=== PATIENT | male | born 1990 | race African-American/Black ===

== ENCOUNTER 2017-09-01 22:08 | Emergency (ER) | payer SELFPAY ==
[~2017-09-01] VITALS: Ht 180.3 cm; Wt 57.0 kg
[2017-09-01 22:19] VITALS: Ht 180.3 cm; Wt 57.0 kg
[2017-09-02] MEDS ORDERED: IBUPROFEN 600 MG TAB PO ONE (01:30)
[2017-09-02] MEDS ORDERED: traMADol 50 MG TAB PO ONE (01:30)
--- NOTE | 2017-09-02 02:04 | ERD ---
ER Documentation Chief Complaint Chief Complaint Pt reports R foot pain after a fall HPI 26-year-old male presents here in emergency department for complaints of right foot pain after falling in the stairs today, patient also is complaining of right ankle pain. Patient is complaining of right foot and ankle pain, throbbing pain, 6/10 scale, as was upon movement. Patient did not take any medications to help with symptoms. Patient denies any deformity. Patient denies any numbness or tingling. ROS All systems reviewed and are negative except as per history of present illness. Medications Home Meds Reported Medications [none] Unknown Strength No Conflict Check 09/02/17 Allergies Allergies: Coded Allergies: No Known Allergy (Unverified , 09/01/17) PMhx/Soc Medical and Surgical Hx: pt denies Medical Hx, pt denies Surgical Hx FmHx Family History: No coronary disease, No diabetes, No other Physical Exam Vitals Vital Signs Date Time Temp Pulse Resp B/P Pulse Ox O2 Delivery O2 Flow Rate FiO2 09/01/17 22:19 98.3 97 16 113/62 97 Physical Exam GENERAL: The patient is well developed and appropriate for usual state of health, in no apparent distress. CHEST: Clear to auscultation bilaterally. There are no rales, wheezes or rhonchi. HEART: Regular rate and rhythm. No murmurs, clicks, rubs or gallops. No S3 or S4. ABDOMEN: Soft, nontender and nondistended. Good bowel sounds. No rebound or guarding. No gross peritonitis. No gross organomegaly or masses. No Benitez sign or McBurney point tenderness. BACK: No midline or flank tenderness. EXTREMITIES: Mild tenderness on palpation on the dorsal aspect of the right foot , and on the right lateral malleolus of the right ankle. No swelling noted, no deformity noted. Able to ambulate on it, able to bear weight on it. Able to do full range of motion without any restriction. Equal pulses bilaterally. There is no peripheral clubbing, cyanosis or edema. No focal swelling or erythema. Full range of motion of other joints of the body grossly neurovascularly intact. NEURO: Alert and oriented. Cranial nerves 2-12 intact. Motor strength in all 4 extremities with 5/5 strength. Sensation grossly intact. Normal speech and gait. SKIN: There is no apparent rash or petechia. The skin is warm and dry. HEMATOLOGIC AND LYMPHATIC: There is no evidence of excessive bruising or lymphedema. No gross cervical, axillary, or inguinal lymphadenopathy. Results 24 hrs Current Medications Medications (Trade) Dose Ordered Sig/Pearl Route PRN Reason Start Time Stop Time Status Last Admin Dose Admin Ibuprofen (Motrin) 600 mg ONCE ONCE PO 09/02/17 01:30 09/02/17 01:31 DC 09/02/17 01:33 Tramadol HCl (Ultram) 50 mg ONCE ONCE PO 09/02/17 01:30 09/02/17 01:31 DC 09/02/17 01:34 Patient was given medication for pain here in emergency department, after treatment, patient verbalized feeling much better. Patient's pain is improved. PROCEDURE: XR right Ankle. CLINICAL INDICATION: Injury, pain. TECHNIQUE: AP, oblique and lateral views of the right ankle were performed. COMPARISON: None. FINDINGS: There is normal mineralization and alignment. No acute fracture or osseous lesion is identified. The joints are normal. The soft tissues are unremarkable. IMPRESSION: Unremarkable examination of the right ankle. RPTAT: HRSR Physician Jese Date Time Electronically viewed and signed by Veena Sheehan Physician on 09/02/2017 02 :22 RR/ CC: MANUELITO KUMAR NP PROCEDURE: XR Foot. CLINICAL INDICATION: Pain. TECHNIQUE: Three views of the right foot. COMPARISON: None available. FINDINGS: No fracture or dislocation is identified. There is hallux valgus. The joint spaces are preserved. There is no significant soft tissue swelling. IMPRESSION: 1. No fracture or dislocation of the right foot. 2. Hallux valgus. RPTAT: HTAR .Ry Lewis MD, Date Time Electronically viewed and signed by .Ry Lewis MD, on 09/02/2017 02:27 .R/ CC: MANUELITO KUMAR NP After receiving patients xray report, an Seamus wrap was applied on the patients right foot and ankle. After application of the Seamus wrap, patient has intact sensation and circulation on distal area of the affected joint. Patient does not complain of numbness or tingling after application of the Seamus wrap. Patient tolerated procedure well. Procedures/MDM Medical Decision Making: Patient's pain is most likely consistent with a contusion or a sprain. There is no suspicion for neurovascular compromise. Patient has intact sensation and circulation of the affected extremity. There is low suspicion for septic arthritis. Patient does not have any fever. Radiology exams of the affected area does not show any fracture or dislocation. Disposition: Home. Patient is given prescription for ibuprofen for pain. Patient was advised to elevate the affected area and apply ice on affected area. Patient was advised that if symptoms are worse, numbness, tingling, high fever, unable to move joint, worsening symptoms, to return to emergency department immediately. Otherwise, patient is advised to follow up with the primary care doctor in 5-7 days for reevaluation of symptoms. Disclaimer: Inadvertent spelling and grammatical errors are likely due to EHR/ dictation software use and do not reflect on the overall quality of patient care. Also, please note that the electronic time recorded on this note does not necessarily reflect the actual time of the patient encounter. Departure Diagnosis: Primary Impression: Foot sprain Encounter type: initial encounter Laterality: right Qualified Code: S93.601A - Sprain of right foot, initial encounter Additional Impression: Ankle sprain Encounter type: initial encounter Involved ligament of ankle: unspecified ligament Laterality: right Qualified Code: S93.401A - Sprain of right ankle , unspecified ligament, initial encounter Condition: Stable Patient Instructions: Sprain Foot, Treating Ankle Sprains MANUELITO KUMAR NP Sep 02, 2017 02:04
--- NOTE | 2017-09-02 02:23 | RADRPT ---
PROCEDURE: XR right Ankle. CLINICAL INDICATION: Injury, pain. TECHNIQUE: AP, oblique and lateral views of the right ankle were performed. COMPARISON: None. FINDINGS: There is normal mineralization and alignment. No acute fracture or osseous lesion is identified. The joints are normal. The soft tissues are unremarkable. IMPRESSION: Unremarkable examination of the right ankle. RPTAT: HRSR Physician Jese Date Time Electronically viewed and signed by Physician Jese on 09/02/2017 02:22 RR/
--- NOTE | 2017-09-02 02:28 | RADRPT ---
PROCEDURE: XR Foot. CLINICAL INDICATION: Pain. TECHNIQUE: Three views of the right foot. COMPARISON: None available. FINDINGS: No fracture or dislocation is identified. There is hallux valgus. The joint spaces are preserved. There is no significant soft tissue swelling. IMPRESSION: 1. No fracture or dislocation of the right foot. 2. Hallux valgus. RPTAT: HTAR .Ry Lewis MD, MD Date Time Electronically viewed and signed by .Ry Lewis MD, on 09/02/2017 02:27 .R/
[2017-09-02] MEDS ORDERED: IBUP-1542 PO (02:44)
== END 2017-09-02 03:12 | disposition home or self-care (01) ==
LOC: FTE 22:08
DX: S93.401A Sprain of unspecified ligament of right ankle, initial encounter (principal); W10.9XXA Fall (on) (from) unspecified stairs and steps, initial encounter; Y92.9 Unspecified place or not applicable
CPT/HCPCS: 73630